=== PATIENT | male | born 1980 | race African-American/Black ===

== ENCOUNTER 2023-09-28 12:43 | Inpatient (IN) | payer OTHER ==
[~2023-09-28] VITALS: Ht 365.8 cm; Wt 144.7 kg
[2023-09-28 12:47] VITALS: O2SAT 98
[2023-09-28 13:12] LABS: BASOPHILS % 0.7 % (0.0-2.0); CHLORIDE 107 mEq/L (98-107); DIFFERENTIAL COMMENT 0; EOSINOPHILS % 3.8 % (0.0-5.0); HEMATOCRIT. 39.6 % (42.0-52.0); HEMOGLOBIN. 12.8 g/dL (14.0-18.0); LYMPHOCYTES % 24.4 % (20.0-50.0); MEAN CORPUSCULAR HEMOGLOBIN 23.7 pg (28.0-32.0); MEAN CORPUSCULAR HGB CONC 32.4 g/dL (31.0-37.0); MEAN CORPUSCULAR VOLUME 73.2 fL (80.0-94.0); MEAN PLATELET VOLUME 7.6 fl (7.4-10.4); MONOCYTES % 5.6 % (2.0-8.0); NEUTROPHILS % 65.5 % (40.0-76.0); PLATELET 400 x1000/uL (130-400); POTASSIUM 3.8 mEq/L (3.5-5.1); RED BLOOD CELL COUNT 5.41 mill/uL (4.7-6.1); RED CELL DISTRIBUTION WIDTH 15.5 % (11.6-14.6); SODIUM 139 mEq/L (136-145); WHITE BLOOD COUNT 6.8 x1000/uL (4.5-11.0)
[2023-09-28 13:13] LABS: CARBON DIOXIDE 24 mEq/L (21-32)
[2023-09-28 13:14] LABS: CALCIUM 9.9 mg/dL (8.7-10.4)
[2023-09-28] MEDS: HEPARIN 5000 UNITS/ML VIAL IV ONE (13:16)
[2023-09-28] MEDS: ACETAMINOPHEN 325MG TABLET PO ONE (13:16)
[2023-09-28 13:18] LABS: CREATININE 1.1 mg/dL (0.6-1.3); GLUCOSE 136 mg/dL (70-105); UREA NITROGEN BLOOD 9 mg/dL (9-23)
[2023-09-28 13:19] LABS: TROPONIN I HIGH SENSITIVITY 36 ng/L (3.0-53)
[2023-09-28] MEDS: ONDANSETRON HCL 4MG/2ML INJ IM ONE (14:04)
[2023-09-28] MEDS: OXYCODONE HCL 5MG TABLET PO ONE (14:05)
[2023-09-28 15:22] LABS: TROPONIN I HIGH SENSITIVITY 41 ng/L (3.0-53)
[2023-09-28] MEDS ORDERED: HEPARIN 25,000 UNITS PREMIX 250 ML IV SCH (15:30)
[2023-09-28] MEDS: HEPARIN 25,000 UNITS PREMIX 250 ML IV SCH (16:25)
[2023-09-28 17:00] LABS: TROPONIN I HIGH SENSITIVITY 89 ng/L (3.0-53)
[2023-09-28] MEDS ORDERED: CLONIDINE 0.1MG TABLET PO PRN (21:00)
[2023-09-28] MEDS ORDERED: DIPHENHYDRAMINE 50MG/ML VIAL IV PRN (21:00)
[2023-09-28] MEDS ORDERED: HYDRALAZINE 20MG/ML VIAL IV PRN (21:00)
[2023-09-28] MEDS ORDERED: GUAIFENESIN 200MG/10ML SUGAR FREE UDC PO PRN (21:00)
[2023-09-28] MEDS ORDERED: MAGNESIUM/ALUMINUM HYDROXIDE/SIMETHICONE 30ML UDC PO PRN (21:00)
[2023-09-28] MEDS ORDERED: MORPHINE SULFATE 4 MG/ML INJ (FOR IV/IM USE) IV PRN (21:00)
[2023-09-28] MEDS ORDERED: ACETAMINOPHEN 325MG TABLET PO PRN ×2 (21:00)
[2023-09-28] MEDS ORDERED: ZOLPIDEM TARTRATE 5MG TABLET PO PRN (21:00)
[2023-09-28] MEDS ORDERED: IPRATROPIUM/ALBUTEROL 0.5-3(2.5)MG/3ML NEB HHN PRN (21:00)
[2023-09-28] MEDS ORDERED: NALOXONE HCL 0.4MG/ML VIAL IV PRN (21:15)
[2023-09-28 21:30] VITALS: PULSE 69; RESP 18; TEMP 97.6
[2023-09-28] MEDS: SODIUM CHLORIDE 0.9% INJ 3ML FLUSH IVF SCH (22:00)
[2023-09-28] MEDS ORDERED: HEPARIN BOLUS PRN aPTT <30 IV (22:00)
[2023-09-28 22:15] VITALS: BP 137/93; PULSE 71; RESP 14
[2023-09-28] MEDS ORDERED: BENZONATATE 100MG CAPSULE PO PRN (22:15)
[2023-09-28] MEDS ORDERED: DEXTROSE 50% WATER 50ML SYRINGE IV PRN (22:15)
[2023-09-28] MEDS: OXYCODONE HCL 5MG TABLET PO PRN (22:23)
[2023-09-28] MEDS: PANTOPRAZOLE 40MG DR TABLET PO SCH (22:23)
[2023-09-28] MEDS: AMLODIPINE 5MG TABLET PO SCH (22:25)
[2023-09-28] MEDS: METOPROLOL TARTRATE 25MG TABLET PO SCH (22:25)
[2023-09-28] MEDS: ONDANSETRON HCL 4MG/2ML INJ IV PRN (22:36)
[2023-09-28 23:00] VITALS: BP 126/89; PULSE 75; RESP 16
[2023-09-29] VITALS (13 sets, daily range): BP systolic 106–144; BP diastolic 65–104; PULSE 69–82; RESP 11–21; TEMP 97.6–99
[2023-09-29] MEDS: HEPARIN BOLUS PRN aPTT 30-44 IV (00:33)
[2023-09-29] MEDS: LEVOTHYROXINE SODIUM 175MCG TABLET PO SCH (07:04)
[2023-09-29] MEDS: BLOOD SUGAR DIAGNOSTIC STRIP TEST SCH (07:30)
[2023-09-29] MEDS: INSULIN LISPRO 100 UNITS/ML SUBCUT SCH (08:00)
[2023-09-29] MEDS: ASPIRIN 81MG EC TABLET PO SCH (08:37)
[2023-09-29] MEDS: CLOPIDOGREL 75MG TABLET PO SCH (08:37)
[2023-09-29] MEDS ORDERED: LISINOPRIL 5MG TABLET PO SCH (09:00)
[2023-09-29] MEDS: TRIAMCINOLONE ACETONIDE 0.1% CREAM 15GM TOP SCH (09:50)
[2023-09-29 12:41] LABS: PROTHROMBIN TIME 11.6 sec (9.6-11.0)
[2023-09-29] MEDS: ENOXAPARIN 150MG/ML SYR SUBCUT NR (12:51)
[2023-09-29] MEDS: ATORVASTATIN CALCIUM 20MG TABLET PO SCH (21:47)
[2023-09-29] MEDS: ATENOLOL 25MG TABLET PO SCH (21:48)
[2023-09-29] MEDS: ENOXAPARIN 150MG/ML SYR SUBCUT SCH (22:10)
[2023-09-30] VITALS (7 sets, daily range): BP systolic 123–138; BP diastolic 75–87; PULSE 67–82; RESP 16–21; TEMP 97–98.2
[2023-09-30] MEDS: FAMOTIDINE 20MG TABLET PO SCH (10:01)
[2023-09-30 10:24] LABS: CHLORIDE 106 mEq/L (98-107); POTASSIUM 3.9 mEq/L (3.5-5.1); SODIUM 137 mEq/L (136-145)
[2023-09-30 10:25] LABS: CALCIUM 9.6 mg/dL (8.7-10.4); CARBON DIOXIDE 25 mEq/L (21-32)
[2023-09-30 10:29] LABS: BASOPHILS % 0.6 % (0.0-2.0); DIFFERENTIAL COMMENT 0; HEMATOCRIT. 38.4 % (42.0-52.0); HEMOGLOBIN. 12.1 g/dL (14.0-18.0); LYMPHOCYTES % 23.7 % (20.0-50.0); MEAN CORPUSCULAR HEMOGLOBIN 23.6 pg (28.0-32.0); MEAN CORPUSCULAR HGB CONC 31.5 g/dL (31.0-37.0); MEAN CORPUSCULAR VOLUME 74.8 fL (80.0-94.0); MEAN PLATELET VOLUME 7.8 fl (7.4-10.4); MONOCYTES % 4.1 % (2.0-8.0); NEUTROPHILS % 67.6 % (40.0-76.0); PLATELET 362 x1000/uL (130-400); RED BLOOD CELL COUNT 5.13 mill/uL (4.7-6.1); RED CELL DISTRIBUTION WIDTH 15.3 % (11.6-14.6); WHITE BLOOD COUNT 7.2 x1000/uL (4.5-11.0)
[2023-09-30 10:30] LABS: CREATININE 1.3 mg/dL (0.6-1.3); GLUCOSE 144 mg/dL (70-105); TRIGLYCERIDE 135 mg/dL (0-150); UREA NITROGEN BLOOD 8 mg/dL (9-23)
[2023-09-30 10:31] LABS: LDL CHOLESTEROL 87 mg/dL (5-100)
[2023-09-30 10:32] LABS: CHOLESTEROL 139 mg/dL (<200); HDL CHOLESTEROL 35 mg/dL (>55)
[2023-09-30 10:34] LABS: TROPONIN I HIGH SENSITIVITY 4200 ng/L (3.0-53)
== END 2023-09-30 12:15 | disposition short-term general hospital (02) | DRG 281 ==
LOC: ER 13:38 → EDBEDREQSVC 16:00 → EDBEDREQTM 16:00 → EDBEDREQ 16:00 → 5EST 21:37
PROVIDERS: ADMIT Internal Medicine; ATTEND Internal Medicine
DX: I21.4 Non-ST elevation (NSTEMI) myocardial infarction (principal); Z68.1 Body mass index [BMI] 19.9 or less, adult; E11.9 Type 2 diabetes mellitus without complications; I11.9 Hypertensive heart disease without heart failure; E06.3 Autoimmune thyroiditis; E66.9 Obesity, unspecified; J45.909 Unspecified asthma, uncomplicated; I25.10 Atherosclerotic heart disease of native coronary artery without angina pectoris; E78.5 Hyperlipidemia, unspecified; Z98.61 Coronary angioplasty status; Z83.3 Family history of diabetes mellitus; Z82.49 Family history of ischemic heart disease and other diseases of the circulatory system; Z82.3 Family history of stroke; Z79.899 Other long term (current) drug therapy; Z79.82 Long term (current) use of aspirin; Z79.02 Long term (current) use of antithrombotics/antiplatelets
CPT/HCPCS: 36415; 71045; 80048; 80061; 82962; 83036; 83735; 84484; 85025; 86850; 86900; 93005; 93306; 99285; J1644; J1650; J2405